=== PATIENT | male | born 1970 | race Caucasian/White ===

== ENCOUNTER 2017-09-05 17:09 | Emergency (ER) | payer OTHER ==
[~2017-09-05] VITALS: Ht 182.9 cm; Wt 88.5 kg
[~2017-09-05 17:09] MED LIST: ACETAMINOPHEN-1 EAC1 PO; ASPIR 8181 MG PO; COLACE100 MG PO; FLEXERIL PO; IBUPROFEN 800800 M1 PO; IBUPROFEN 800800 MG PO; NOHOMEMEDICATIONS; NORCO 5-325 TA1 EACH PO; PROCTOFOAM-HC F10 GM RC; ROBAXIN500 MG PO
[2017-09-05 17:33] LABS: ABSOLUTE BASOPHILS 0.1 thou/uL (0.0-0.2); ABSOLUTE EOSINOPHILS 0.1 thou/uL (0.0-0.7); ABSOLUTE LYMPHOCYTES 2.4 thou/uL (0.8-5.3); ABSOLUTE MONOCYTES 0.7 thou/uL (0.0-1.2); ABSOLUTE NEUTROPHILS 8.1 thou/uL (1.6-8.1); BASOPHILS 0.7 %; EOSINOPHILS 0.8 %; HEMOGLOBIN 15.4 gm/dL (14.0-18.0); LYMPHOCYTES 21.3 %; MCH 27.8 pg (26.0-34.0); MCHC 33.4 g/dL (28.0-37.0); MCV 83.3 fL (80.0-100.0); MONOCYTES 6.1 %; MPV 9.3 fl. (7.2-11.1); NUCLEATED RBCS 0 /100WBC; PLATELET COUNT* 246 thou/uL (150-400); POLYS 71.1 %; RBC 5.52 mil/uL (4.50-6.00); RDW-CV 14.6 % (10.5-14.5); WBC 11.4 thou/uL (4.0-11.0)
[2017-09-05 17:44] LABS: ANION GAP 13 mmol/L (7-16); BUN 10 mg/dL (7-18); CALCIUM 8.6 mg/dL (8.5-10.1); CHLORIDE 103 mmol/L (98-107); CO2 25 mmol/L (21-32); GLUCOSE 105 mg/dL (70-99); SODIUM 141 mmol/L (136-145)
[2017-09-05 17:47] LABS: APTT 28.7 Seconds (25.0-31.3); INR 1.1; PROTIME 10.6 Seconds (9.20-11.50)
[2017-09-05 18:04] LABS: ALBUMIN 4.2 g/dL (3.4-5.0); ALKALINE PHOSPHATASE 80 U/L (46-116); CK-MB MASS 1.6 ng/mL (<0.5-3.6); LIPASE 188 U/L (73-393); MAGNESIUM 2.1 mg/dL (1.8-2.4); NT-PRO BRAIN NAT PEPTIDE 219 pg/mL (<300); SGOT 17 U/L (15-37); SGPT 27 U/L (30-65); TOTAL BILIRUBIN 0.9 mg/dL (<0.1-1.0); TOTAL PROTEIN 7.7 g/dL (6.4-8.2); TROPONIN-I LEVEL <0.06 ng/mL (<0.06)
[2017-09-05 18:11] VITALS: BP 137/91
--- NOTE | 2017-09-06 15:14 | EKG ---
[place] [address] ELECTROCARDIOGRAM REPORT Name: CHRIS RODRÍGUEZ Room: [facility]#: [id number] Admission: 09/05/17 Attend Phys: Discharge: 09/05/17 Date of : 74 Report #: [id number] THIS REPORT FOR: //name// [facility] ED Test Date: 2017-09-05 Test Time: 17:13:24 Pat Name: CHRIS RODRÍGUEZ Department: Room: Gender: M Team Leader Surgery: Calista HENDRICKS : 1970 Requested By: Eligio Warner Order Number: [id number] MD: René Montoya Measurements Intervals [place] Rate: 119 P: 56 NV: 170 QRS: -21 QRSD: 97 T: 22 QT: 319 QTc: 449 Interpretive Statements Sinus tachycardia Probable left atrial enlargement Borderline left axis deviation Minimal ST depression, lateral leads Compared to ECG 04/26/2015 18:16:55 ST (T wave) deviation now present Heart rate has increased Electronically Signed On 09-06-2017 15:14:48 CDT by René Montoya [email or web address] <ELECTRONICALLY SIGNED> By: René Montoya MD, [facility] 09/06/17 1514 1713 1713 René Montoya MD, [facility] /EPI
--- NOTE | 2017-09-06 15:15 | EKG ---
[place] [address] ELECTROCARDIOGRAM REPORT Name: CHRIS RODRÍGUEZ Room: [facility]#: [id number] Admission: 09/05/17 Attend Phys: Discharge: 09/05/17 Date of : 74 Report #: [id number] THIS REPORT FOR: //name// [facility] ED Test Date: 2017-09-05 Test Time: 17:36:13 Pat Name: CHRIS RODRÍGUEZ Department: Room: Gender: M Computer Support Specialist: Calista WALKER : 1970 Requested By: Eligio Warner Order Number: [id number] MD: René Montoya Measurements Intervals [place] Rate: 83 P: 50 SD: 197 QRS: -12 QRSD: 102 T: 4 QT: 405 QTc: 476 Interpretive Statements Sinus rhythm Left atrial enlargement Borderline prolonged QT interval Compared to ECG 04/26/2015 18:16:55 Atrial abnormality now present Electronically Signed On 09-06-2017 15:15:53 CDT by René Montoya [email or web address] <ELECTRONICALLY SIGNED> By: René Montoya MD, [facility] 09/06/17 1515 1736 173 René Montoya MD, [facility] /EPI
== END 2017-09-05 18:13 | disposition home or self-care (01) ==
LOC: M.ERS 17:09
PROVIDERS: Family Medicine
DX: E87.6 Hypokalemia (principal); R07.89 Other chest pain

== ENCOUNTER 2020-07-25 19:15 | Emergency (ER) | payer OTHER ==
[~2020-07-25] VITALS: Ht 182.9 cm; Wt 81.7 kg
[2020-07-25 19:20] VITALS: BP 143/80
[2020-07-25] MEDS ORDERED: ASPIRIN325 PO (19:23)
[2020-07-25] MEDS ORDERED: EFFER-K 10 MEQ10 ME1 PO (19:23)
[2020-07-25] MEDS ORDERED: DIFLUCAN150 MG PO (19:39)
[2020-07-25] MEDS ORDERED: KEFLEX500 M1 PO (19:39)
[2020-07-25] MEDS ORDERED: KETOCONAZOLE15 GM TOP (19:39)
== END 2020-07-25 19:49 | disposition home or self-care (01) ==
LOC: M.ERS 19:15
DX: S90.821A Blister (nonthermal), right foot, initial encounter (principal); B35.3 Tinea pedis; X58.XXXA Exposure to other specified factors, initial encounter; Y93.89 Activity, other specified; Y92.89 Other specified places as the place of occurrence of the external cause; Y99.8 Other external cause status